=== PATIENT | female | born 1985 | race Caucasian/White ===

== ENCOUNTER 2017-05-10 11:22 | Emergency (ER) | payer SELFPAY ==
[~2017-05-10] VITALS: Wt 54.8 kg
[2017-05-10] MEDS ORDERED: morphine 4 MG/ML VIAL IV STA (12:56)
--- NOTE | 2017-05-10 13:04 | ERD ---
ER Documentation Chief Complaint Chief Complaint miscarraige on monday, c/o cramping, low bp baseline per pt HPI 31-year-old female presenting 48 hour status post spontaneous at with the chief complaints of bilateral pelvic pain with prominence the left side. Denies any fever, chills, taking any medications to relieve the symptoms. No aggravating or alleviating factors. States that she has been bleeding and is been controlled with under 3 pads over the past 48 hours. Describes the bleeding with quarter size clots. Patient has no other complaints and describes no other associated manifestations. Nursing notes have been reviewed and are consistent with history given. ROS All systems reviewed and are negative except as per history of present illness. Allergies Allergies: Coded Allergies: No Known Allergy (Unverified , 05/10/17) PMhx/Soc Medical and Surgical Hx: pt denies Medical Hx, pt denies Surgical Hx Hx Alcohol Use: No Hx Substance Use: No Hx Tobacco Use: No Smoking Status: Never smoker Physical Exam Vitals Vital Signs Date Time Temp Pulse Resp B/P Pulse Ox O2 Delivery O2 Flow Rate FiO2 05/10/17 11:24 98.0 83 20 95/58 100 Physical Exam Const: Well-appearing 31-year-old female no acute distress. Head: Atraumatic Eyes: Normal Conjunctiva ENT: Normal External Ears, Nose and Mouth. Neck: Full range of motion..~ No meningismus. Resp: Clear to auscultation bilaterally Cardio: Regular rate and rhythm, no murmurs Abd: Soft, non tender, non distended. Normal bowel sounds. No suprapubic tenderness. No pelvic tenderness. Skin: No petechiae or rashes Back: No midline or flank tenderness Ext: No cyanosis, or edema Neur: Awake and alert Psych: Normal Mood and Affect Result Diagram: 05/10/17 1327 Results 24 hrs Laboratory Tests Test 05/10/17 13:27 White Blood Count 4.410^3/ul Red Blood Count 4.0710^6/ul Hemoglobin 12.1g/dl Hematocrit 36.7% Mean Corpuscular Volume 90.2fl Mean Corpuscular Hemoglobin 29.7pg Mean Corpuscular Hemoglobin Concent 33.0g/dl Red Cell Distribution Width 13.5% Platelet Count 91461^3/UL Mean Platelet Volume 10.3fl Neutrophils % 39.4% Lymphocytes % 48.5% Monocytes % 8.2% Eosinophils % 3.2% Basophils % 0.7% Nucleated Red Blood Cells % 0.0/100WBC Neutrophils # 1.710^3/ul Lymphocytes # 2.110^3/ul Monocytes # 0.410^3/ul Eosinophils # 0.110^3/ul Basophils # 0.010^3/ul Nucleated Red Blood Cells # 0.010^3/ul Prothrombin Time 14.8Sec Prothrombin Time Ratio 1.2 INR International Normalized Ratio 1.16 Activated Partial Thromboplast Time 27.4Sec Urine Color YELLOW Urine Clarity CLEAR Urine pH 5.0 Urine Specific [place] 1.011 Urine Ketones NEGATIVEmg/dL Urine Nitrite NEGATIVEmg/dL Urine Bilirubin NEGATIVEmg/dL Urine Urobilinogen NEGATIVEmg/dL Urine Leukocyte Esterase NEGATIVELeu/ul Urine Hemoglobin NEGATIVEmg/dL Urine Glucose NEGATIVEmg/dL Urine Total Protein NEGATIVEmg/dl Beta HCG, Quantitative < 2.4mIU/ml Current Medications Medications (Trade) Dose Ordered Sig/Linda Route PRN Reason Start Time Stop Time Status Last Admin Dose Admin Morphine Sulfate (morphine) 4 mg ONCE STAT IV 05/10/17 12:56 05/10/17 13:35 DC Morphine Sulfate (morphine) 3 mg ONCE STAT IM 05/10/17 13:34 05/10/17 13:35 DC 05/10/17 13:54 Procedures/MDM Otherwise healthy 29-year-old female presents with a chief complaint of pelvic pain and blood with clots in 48 hours status post spontaneous at 11 weeks. Ultrasound was obtained read as unremarkable by the radiologist. Labs were obtained and largely unremarkable. No sign of urinary tract infection. Beta-hCG less than 2.4. Physical exam was largely unremarkable. I have no suspicion for acute abdomen, retained products of conception, abscess, PID, or other SBI. Most likely diagnosis is pelvic pain of unknown etiology versus dysmenorrhea. Management will include [id number] ibuprofen and Tylenol for discomfort. Presented the case to my attending who agrees with the assessment and plan. I have spoke with the patient regarding their condition and future management. They have verbally responded that they understand their status and treatment plan. The patients vitals are stable, and their current condition is appropriate for discharge. The patient will be given discharge instructions with return precautions. Departure Diagnosis: Primary Impression: Acute pain in female pelvis Condition: Stable Additional Instructions: Follow up with your PCP within the next 1-3 days for a more thorough evaluation and a possible referral to a specialist. Return the the emergency department immediately if symptoms worsen or change. If you have any questions regarding medications, ask your pharmacist or us before you leave. If any adverse reactions occur while taking your medications, discontinue the treatment and return to the emergency department immediately. Take your medications as directed, and complete the entire course of treatment. JOSEFINA AVERY PA-C May 10, 2017 13:04
--- NOTE | 2017-05-10 13:33 | RADRPT ---
PROCEDURE: US Pelvis. CLINICAL INDICATION: vaginal bleeding TECHNIQUE: Multiple sonographic images of the pelvis were obtained utilizing a transabdominal and endovaginal technique. The images were reviewed on a PACS workstation. COMPARISON: None. FINDINGS: The uterus is normal in size and demonstrates a normal appearance of the myometrium. The endometria l stripe is heterogeneous in appearance and has the thickness of 3.6 mm. No intrauterine gestation is noted. The ovaries are normal in size and echogenicity. Normal Doppler flow is identified in both ovaries. The right ovary measures 2.5 x 1.5 x 2.1 cm. The left ovary measures 2.9 x 2.2 x 2.4 cm. There is a small amount of free fluid in the pelvis. RPTAT: AA IMPRESSION: No intrauterine gestation visualized. Differential diagnosis includes early , missed or ectopic . Follow-up ultrasound and HCG levels is recommended. .Cuauhtemoc Henry MD, MD Date Time Electronically viewed and signed by .Cuauhtemoc Henry MD, on 05/10/2017 13:33 .S/
[2017-05-10] MEDS ORDERED: morphine 4 MG/ML VIAL IM STA (13:34)
== END 2017-05-10 15:00 | disposition home or self-care (01) ==
LOC: FTE 11:22
DX: R10.2 Pelvic and perineal pain (principal)
CPT/HCPCS: 36415; 76801; 76817; 81003; 84702; 85025; 85610; 85730; 86900; 86901; 96372; 99285; J2270